=== PATIENT | male | born 1945 | race American Indian/Alaskan Native ===

== ENCOUNTER 2016-11-28 06:06 | Day surgery (SDC) | payer MEDICARE ==
[2016-11-28] MEDS ORDERED: ECOTRIN PO NR (08:00)
[2016-11-28] MEDS ORDERED: NACL 0.9% 500 ML 500 ML IV SCH (08:00)
[2016-11-28 08:10] LABS: Basophils % (Auto) 1.1 % (0.0-1.8); Eosinophils % (Auto) 3.7 % (0.0-4.3); Hematocrit 39.3 % (35.5-45.6); Hemoglobin 13.3 gm/dl (11.8-15.2); Mean Corpuscular HGB Conc 34 % (32-34); Mean Corpuscular Hemoglobin 28 pg (28-32); Mean Corpuscular Volume 84 fl (84-94); Platelet Count 187 K/mm3 (140-440); Red Blood Count 4.69 M/mm3 (3.65-5.03); Red Cell Distribution Width 14.5 % (13.2-15.2)
[2016-11-28 08:28] LABS: Anion Gap 15 mmol/L; Blood Urea Nitrogen 22 mg/dL (9-20); Calcium 9.5 mg/dL (8.4-10.2); Carbon Dioxide 29 mmol/L (22-30); Chloride 98.6 mmol/L (98-107); Glucose 137 mg/dL (75-100); Sodium 140 mmol/L (137-145)
[2016-11-28 08:30] LABS: Potassium 2.9 mmol/L (3.6-5.0)
[2016-11-28] MEDS ORDERED: K-DUR PO ONE ×3 (08:33→09:00)
[2016-11-28 09:02] LABS: INR 0.86 (0.87-1.13)
[2016-11-28] MEDS ORDERED: VERSED ONE (10:06)
[2016-11-28] MEDS ORDERED: SUBLIMAZE ONE (10:06)
[2016-11-28] MEDS ORDERED: HEPARIN/NS 5000 UNIT/500ML(CATH LAB) 1,000 ML IR ONE (10:06)
[2016-11-28] MEDS ORDERED: CALAN ONE (10:07)
[2016-11-28] MEDS ORDERED: XYLOCAINE 2% INFILTRATI ONE (10:07)
[2016-11-28] MEDS ORDERED: NITROGLYCERIN SYRINGE 3 ML ONE (10:07)
[2016-11-28] MEDS: HEPARIN 10,000 UNITS/10 ML ONE ×2 (10:29→10:40)
[2016-11-28] MEDS ORDERED: HEPARIN/NS 5000 UNIT/500ML(CATH LAB) 500 ML IR ONE (10:44)
--- NOTE | 2016-11-28 11:09 | Short Stay Summary ---
Short Stay Documentation Date of service: 11/28/16 - History H&P: obtained from office - Allergies and Medications Current Medications: Allergies No Known Allergies Allergy (Verified 11/28/16 07:28) Home Medications Medication Instructions Recorded Confirmed Last Taken Type AtorvaSTATin [Lipitor] 10 mg PO DAILY 11/28/16 11/28/16 11/27/16 History 10mg Indapamide [Lozol] 2.5 mg PO DAILY 11/28/16 11/28/16 11/27/16 History 2.5mg Lisinopril [Zestril TAB] 20 mg PO DAILY 11/28/16 11/28/16 11/27/16 History 20mg Metoprolol [Lopressor TAB] 50 mg PO BID 11/28/16 11/28/16 11/27/16 History Potassium Chloride [K-Dur] 10 meq PO QDAY 11/28/16 11/28/16 11/27/16 History amLODIPine [Norvasc] 10 mg PO DAILY 11/28/16 11/28/16 11/27/16 History 10mg metFORMIN [Glucophage] 1,000 mg PO BID 11/28/16 11/28/16 11/27/16 History 1000mg Active Medications Aspirin (Ecotrin) 325 mg PO ONCE NR Stop: 11/28/16 17:00 Last Admin: 11/28/16 08:22 Dose: 325 mg Sodium Chloride (Nacl 0.9% 500 Ml) 500 mls @ 50 mls/hr IV DIRECT JEFFERY Stop: 11/28/16 17:59 Last Admin: 11/28/16 08:22 Dose: 50 mls/hr - Brief post op/procedure progress note Date of procedure: 11/28/16 Pre-op diagnosis: CAD Post-op diagnosis: same - Disposition Condition at discharge: Good Disposition: [id number] TO HOME OR SELFCARE Short Stay Discharge Plan Activity: no restrictions, advance as tolerated Diet: low fat, low cholesterol Wound: keep clean and dry Follow up with: DILEEP FLOOD MD [Staff Physician] - 7 Days Prescriptions: AtorvaSTATin [Lipitor] 40 mg PO DAILY #30 tablet
--- NOTE | 2016-11-28 12:39 | Operative Report ---
Operative Report Operative Report: Operative Report: Procedures performed Left and right coronary angiogram Left ventriculogram Intravascular evaluation of the left main Operators Indication : Abnormal stress test Sedation : moderate sedation using Versed and fentanyl Specimens removed : None Procedure details Informed consent is obtained from the patient. Patient was cleaned and draped in the usual sterile fashion. Using the standard precautions procedures a 6 [place] sheath was placed in the right radial artery. She was cleaned and flushed. Diagnostic coronary angiogram was done using the JL 3.5 and JR4 diagnostic catheter exchanged over a guidewire. LV gram was done using JR 4 catheter. Intravenous heparin was used to maintain therapeutic ACT. Nx P3.5 guide catheter was used to engage the left main coronary artery. A BMW wire was easily standard guidewire. Intravascular ultrasound evaluation was done using the standard guidelines. Patient tolerated the procedure well. At the end sheat was pulled and TR band placed. Complete homeostasis obtained. Findings Hemodynamics Aorta 160/80 mmHg Left ventricular pressure 163/15mmHg Left ventriculogram done in today's CORONADO projection shows normal LV systolic function Angiogram details Left main calcified excentric proximal stenosis. By IVUS this was only around 20 -30% LAD has small to medium caliber calcified vessel. Moderate 50% very long excentric stenosis noted Circumflex is large dominant and has mild luminal irregularities The RCA is non dominant and angiographically normal Impression Calcified non obstructive CAD Normal LV systolic function Plan Risk factor modification Medical therapy for CAD Routine radial artery sheath care
[2016-11-28 14:16] VITALS: BP 179/80
== END 2016-11-28 14:50 | disposition home or self-care (01) ==
LOC: OPU 06:06
PROVIDERS: ATTEND Internal Medicine Cardiovascular Disease
DX: I25.10 Atherosclerotic heart disease of native coronary artery without angina pectoris (principal); E11.9 Type 2 diabetes mellitus without complications; E78.00 Pure hypercholesterolemia, unspecified; I10 Essential (primary) hypertension; Z98.890 Other specified postprocedural states; Z79.899 Other long term (current) drug therapy; Z79.84 Long term (current) use of oral hypoglycemic drugs
CPT/HCPCS: 36415; 80048; 82962; 84132; 85025; 85347; 85610; 85730; 92978; 93005; 93010; 93458; C1753; C1887; C1894; J1644; J2250; J3010; J7040; Q9967